=== PATIENT | male | born 1990 | race Asian ===

== ENCOUNTER 2017-07-08 17:12 | Emergency (ER) | payer SELFPAY ==
[2017-07-08] MEDS ORDERED: Tetan/Diph/Pertus SYR(Tdap)* 0.5 ML SYR(BOOSTRIX) use SYR IM ONE (19:33)
[2017-07-08] MEDS ORDERED: Silver Sulfadiazine 1% 400gm* 1 APPLIC JAR TOPICAL ONE (19:33)
[2017-07-08] MEDS ORDERED: Silver Sulfadiazine 1%* 20 GM ONE (19:43)
[2017-07-08 21:21] VITALS: BP 100/68
--- NOTE | 2017-07-09 00:49 | ED ---
Johanthan Velazquez Tiffany, scribed for Ian Lin MD on 07/08/17 at 1940 . Burn - HPI Summary HPI Summary: The patient is a 26 y/o M with a chief complaint of burn on right hand since yesterday. 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 Blisters opened immediately after spill. The patient rates the pain 2/10 in severity. Symptoms aggravated by nothing. Symptoms alleviated by nothing. Patient has treated burn with ointment SCRUB TECH. - History of Current Complaint Chief Complaint: EDBurnSmokeInh Stated Complaint: HOT OIL BURN TO HAND Time Seen by Provider: 07/08/17 19:21 Hx Obtained From: Patient Occurred: Days Ago - Yesterday Current Severity: Mild Pain Intensity: 2 Pain Scale Used: 0-10 Numeric Location: Other - Right hand Character: Blisters: Ruptured Aggravating: Nothing Alleviating: Nothing - Allergy/Home Medications Allergies/Adverse Reactions: Allergies Allergy/AdvReac Type Severity Reaction Status Date / Time No Known Allergies Allergy Verified 07/08/17 17:33 PMH/Surg Hx/FS Hx/Imm Hx Previously Healthy: Yes Cardiovascular History: Denies: Hx Coronary Artery Disease EENT History: Denies: Hx Deafness Infectious Disease History: No Infectious Disease History: Denies: Traveled Outside the [place] in Last 30 Days - Social History Alcohol Use: None Hx Substance Use: No Substance Use Type: Reports: None Hx Tobacco Use: No Smoking Status (MU): Never Smoked Tobacco Review of Systems Negative: Fever Positive: Other - Burn on right hand All Other Systems Reviewed And Are Negative: Yes Physical Exam - Summary Physical Exam Summary: General: well-appearing, no pain distress Skin: second degree burn over the right hand covered with broken blisters and dry discharge, no signs of infection Head: normal Eyes: EOMI, SCOTT ENT: normal Neck: supple, nontender Respiratory: CTA, breath sounds present Cardiovascular: RRR Abdomen: soft, nontender Bowel: present Musculoskeletal: normal, strength/ROM intact Neurological: normal, sensory/motor intact, A&O x3 Psychological: affect/mood appropriate Triage Information Reviewed: Yes Vital Signs On Initial Exam: Initial Vitals Temp Pulse Resp BP Pulse Ox 98.6 F 85 18 123/88 99 07/08/17 17:29 07/08/17 17:29 07/08/17 17:29 07/08/17 17:29 07/08/17 17:29 Vital Signs Reviewed: Yes Burn Calculation - Warba Formula for Fluid Resuscitation Weight: 61.235 kg 24 -Hour Fluid Replacement: 0.0 Procedures - Procedure Summary Procedure Summary: Patient's second degree burn was depleted and cleaned. Applied Silvadine and dressing. Diagnostics - Vital Signs Vital Signs Temp Pulse Resp BP Pulse Ox 07/08/17 17:29 98.6 F 85 18 123/88 99 - Laboratory Lab Statement: Any lab studies that have been ordered have been reviewed, and results considered in the medical decision making process. Burn Course/Dx - Course Course Of Treatment: 26 year old M dropped hot oil on right hand yesterday. He presented to ED for wound check. Physical exam showed 2nd degree burn. The burn was depleted and dressed with Silvadine. Patient was discharged home with second degree burn instructions and Silvadine. - Diagnoses Provider Diagnosis: Second degree burn Discharge - Discharge Plan Condition: Stable Disposition: HOME Patient Education Materials: Second Degree Burn (ED) Forms: *Work Release Referrals: No Primary Care Phys,NOPCP [Primary Care Provider] - Additional Instructions: Apply the Silvadine cream for 1-2 days until the burn has healed. RETURN TO EMERGENCY DEPARTMENT FOR ANY NEW OR WORSENING SYMPTOMS, including increasing pain or swelling. The documentation as recorded by the Johnathan rueda Tiffany accurately reflects the service I personally performed and the decisions made by , Ian Lin MD.
== END 2017-07-08 21:25 | disposition home or self-care (01) ==
LOC: ED 17:12
DX: T23.201A Burn of second degree of right hand, unspecified site, initial encounter (principal); X10.2XXA Contact with fats and cooking oils, initial encounter; Y93.G3 Activity, cooking and baking; Y92.511 Restaurant or cafe as the place of occurrence of the external cause
CPT/HCPCS: 90471; 90715; 99283; A9270-GY